=== PATIENT | male | born 1960 | race Caucasian/White ===

== ENCOUNTER 2019-10-08 07:40 | Day surgery (SDC) | payer OTHER ==
[2019-10-05 17:00] VITALS: BMI 30.2
--- NOTE | 2019-10-08 10:10 | OP ---
Operative Note - Note: Operative Date: 10/08/19 Pre-Operative Diagnosis: Right renal stone Operation: right ESWL Findings: right 5 mm renal stone Post-Operative Diagnosis: Same as Pre-op Surgeon: Cyrus Whipple Anesthesia: Fractional Operative Report Dictated: Yes
[2019-10-08 11:06] VITALS: BP 108/64; PULSE 69; TEMP 98.5
--- NOTE | 2019-10-08 11:48 | OP ---
DATE OF OPERATION: 10/08/2019 PREOPERATIVE DIAGNOSIS: Right renal stone. POSTOPERATIVE DIAGNOSIS: Right renal stone. PROCEDURE: Right extracorporeal shock-wave lithotripsy. ATTENDING: Giovani Sosa MD ANESTHESIA: Fractional. DESCRIPTION OF PROCEDURE: Patient was brought in the operating room and placed in a supine position on the operating room table. Ultrasonography and fluoroscopy were performed. A right 5-mm renal stone was identified. Anesthesia and preoperative antibiotics were then administered. Shock-wave lithotripsy was then started. Excellent fragmentation of the stones was noted on ultrasound and fluoroscopy. DISPOSITION: To the recovery room. COMPLICATIONS: No complications were noted. GIOVANI SOSA M.D. /[id number]
== END 2019-10-08 11:00 | disposition home or self-care (01) ==
LOC: JASU-SURG 07:40
PROVIDERS: ATTEND Urology
PROC: 0TF3XZZ Fragmentation in Right Kidney Pelvis, External Approach (ICD-10-PCS; principal; 2019-10-08 09:35)
DX: N20.0 Calculus of kidney (principal)